=== PATIENT | female | born 1990 | race Hispanic/Latino ===

== ENCOUNTER 2020-05-11 05:45 | Day surgery (SDC) | payer OTHER ==
[~2020-05-11] VITALS: Ht 165.1 cm; Wt 109.0 kg
[~2020-05-11 05:45] MED LIST: ONDANSETRON ODT8 MG PO; RIZATRIPTAN5 MG PO; TRIAMCINOLONE A15 G1 TOP
--- NOTE | 2020-05-11 08:52 | NUR ---
05/11/20 0852 Renetta Field 0845- PT ARRIVES TO PACU NONAROUSABLE TO NOXIOUS STIMULI WITH AN OPA IN PLACE. RESP EVEN AND UNLABORED. OXYGEN SAT HIGH 90'S TO 100% ON 6L VIA MASK. PT'S BP 77/35, FLAVIA PATTERSON, ARTISTS' BOOKING REPRESENTATIVE AWARE. PT'S IV FLUIDS OPENED UP PER HER ORDER.
--- NOTE | 2020-05-11 09:45 | OR ---
[facility] [address] [place], [place] [address] Signed DATE OF OPERATION: 05/11/2020 SURGEON: Alex Crooks MD PREOPERATIVE DIAGNOSES: Chronic cholecystitis and cholelithiasis. POSTOPERATIVE DIAGNOSES: Chronic cholecystitis and cholelithiasis. PROCEDURE: Laparoscopic cholecystectomy with intraoperative cholangiogram. ESTIMATED BLOOD LOSS: None. FINDINGS: The intraoperative cholangiogram was unremarkable. There were chronic inflammatory changes with the omentum adherent to most of the gallbladder. There were multiple 8-10 mm stones within the gallbladder. INDICATIONS: Constance is a 30-year-old female with a body mass index of 40. She has been having trouble for at least a month with right upper quadrant abdominal pain. It is worse after eating. She had been to her primary care provider. The ultrasound confirmed her multiple gallstones. There was no gallbladder wall thickening and the common bile duct was unremarkable. She had been asked to see me as a general surgeon. Constance had been online reading and had cut the fat back in her diet. It helped to reduce her symptoms, but did not alleviate them completely. In the office, I gave her a booklet on the gallbladder. We discussed the location and function of the gallbladder. We discussed laparoscopic versus open cholecystectomy. We reviewed the expected intraop and postop course. She understands there is risk including, but not limited to bleeding, infection, scarring, change in contour of the skin, damage to bowel, damage to main bile duct, incisional hernias and other unforeseen comorbidities. She had expressed understanding and wished to proceed. DESCRIPTION OF PROCEDURE: Constance was taken into the operating room and placed in the supine position under general endotracheal tube anesthesia. She was given preoperative antibiotics along with subcutaneous heparin. SCDs were utilized. She was then prepped and draped in the usual Electronically Signed By: ALEX CROOKS MD 05/11/20 0945 PATIENT NAME: CONSTANCE GRULLON OPERATIVE REPORT DATE OF : [birth year] REPORT #: [id number] PHYSICIAN: ALEX CROOKS MD PCP: COMPA DILLARD PAC REPORT IS CONFIDENTIAL AND NOT TO BE RELEASED WITHOUT AUTHORIZATION [facility] [address] [place], [place] [address] Signed sterile fashion. All trocars were then placed in usual positions under direct visualization of the camera without difficulty. Pictures were taken throughout for photodocumentation. The gallbladder was grasped and elevated in the right upper quadrant. It took a few minutes to divide the adhesions from the gallbladder down to the triangle of Calot. The triangle of Calot was dissected free and 2 clips were placed across the cystic artery and it was divided. The intraoperative cholangiocatheter was inserted into the cystic duct. The intraoperative cholangiogram was then performed. The cystic duct stump was then secured with a PDS Endoloop and 2 clips were placed across the cystic duct stump to yudelka its location. The gallbladder was then slowly and carefully removed from the gallbladder fossa with the help of the cautery and placed into an EndoCatch bag. The right upper quadrant was irrigated and suctioned out until clear. We used our laparoscopic suturing device to pass 0 Vicryl suture on either side of the fascia of the subxiphoid trocar site. This was tied down to close this fascia primarily. After this, all the gas was allowed to escape and all the trocars were removed. The gallbladder was passed off to our circulating nurse on the back table. It was opened for photodocumentation. The fascia of the supraumbilical trocar site was closed with interrupted adrijh-[id number] and simple 0-Vicryl sutures. Local anesthetic was injected into all trocar sites. Each trocar site was irrigated and suctioned out until clear. The skin and dermis of each trocar site were then closed with interrupted 3-0 subcuticular Monocryl sutures. Dry gauze and tape were applied to all incisions. Constance was then awakened from her anesthesia, extubated in the OR, and taken to the recovery room in stable condition. Alex Crooks MD ALB/MODL /[id number] cc: LISA Fallon MD Copies: ALEX CROOKS MD Electronically Signed By: ALEX CROOKS MD 05/11/20 0945 PATIENT NAME: CONSTANCE GRULLON OPERATIVE REPORT DATE OF : [birth year] REPORT #: [id number] PHYSICIAN: ALEX CROOKS MD PCP: COMPA DILLARD PAC REPORT IS CONFIDENTIAL AND NOT TO BE RELEASED WITHOUT AUTHORIZATION [address] [address] Signed ~ Electronically Signed By: ALEX CROOKS MD 05/11/20 0945 PATIENT NAME: CONSTANCE GRULLON OPERATIVE REPORT DATE OF : [birth year] REPORT #: [id number] PHYSICIAN: ALEX CROOKS MD PCP: COMPA DILLARD PAC REPORT IS CONFIDENTIAL AND NOT TO BE RELEASED WITHOUT AUTHORIZATION
--- NOTE | 2020-05-11 09:47 | NUR ---
PT ARRIVES TO PACU WITH EYES CLOSED, RESP EVEN AND UNLABORED. PT AROUSES TO VERBAL STIMULI AND IS ABLE TO DENY NAUSEA AND STATES PAIN IS 4-5/10. PT STATES PAIN IS IN RIGHT FLANK THAT RADIATES TO BACK. PT MEDICATED FOR PAIN, SEE EMAR. CONT PULSE OXIMETER LEFT IN PLACE. PT FRIEND AT BEDSIDE. CALL LIGHT WITHIN REACH. ICED WATER, CRACKERS AND PUDDING AT BEDSIDE.
--- NOTE | 2020-05-11 10:00 | NUR ---
PT USES CALL LIGHT TO NOTIFY RN OF NAUSEA. ALCOHOL SWAB WAIVED UNDER PT NOSE TO HELP AND PROVIDED EMESIS BAG. PT MEDICATED PER EMAR. FRIEND REMAINS AT BEDSIDE.
[2020-05-11] MEDS ORDERED: NORCO 10-325 T1 EACH PO (10:18)
[2020-05-11] MEDS ORDERED: JULEBER 28 DAY1 EACH PO (10:20)
--- NOTE | 2020-05-11 10:40 | NUR ---
PT RESTING IN BED WITH EYES CLOSED, CONT PULSE OXIMETER IN PLACE SATS 94% ON RA. PT DOES NOT OPEN EYES WHEN ASKED QUESTIONS. PT MUMBLES WHEN ASKED ABOUT PAIN AND/OR NAUSEA. PT STATES, "I AM HOT" AND REQUESTS SCD'S BE REMOVED. BLANKETS REMOVED AND SPENCER HUGGER PLACED ON COOL. PT FRINED REMAINS AT BEDSIDE AND CALL LIGHT IS WITHIN REACH.
--- NOTE | 2020-05-11 11:35 | NUR ---
PT RESTING WITH EYES CLOSED, AROUSES TO VERBAL STIMULI AND MOMENTARILY OPENS EYES. PT STATES NAUSEA IS BETTER AND ASKS TO HAVE SPENCER HUGGER TURNED OFF. PT DENIES PAIN WHEN ASKED. DC CRITERIA EXPLAINED TO PT, ENC TO USE CALL LIGHT WITH URGE TO VOID.
--- NOTE | 2020-05-11 12:36 | NUR ---
PT USES CALL LIGHT TO NOTIFY RN OF URGE TO VOID. PT UP TO BATHROOM WITH RN ASSIST, STEADY GAIT. PT DENIES NAUSEA OR DIZZINESS WITH AMBULATION. ABLE TO VOID 550 MLS CONCENTRATED YELLOW URINE WITH NO PROBLEMS. BACK TO BED, PT STATES FEELING NAUSEATED. PT PROVIDED EMESIS BAG AND ALCOHOL SWAB, PT STATES THAT IT IS HELPING. PT ENC TO TRY SMALL SIPS OF WATER AND CRACKERS. FRIEND AT BEDSIDE, CALL LIGHT WITHIN REACH.
--- NOTE | 2020-05-11 12:48 | NUR ---
PT STATES NAUSEA IS BETTER, TOLERATES WATER AND APPLESAUCE.
--- NOTE | 2020-05-11 13:45 | NUR ---
PT FEELS READY TO DC, DRESSES SELF AND OPENS CURTAIN WHEN FINISHED. THIS RN ENTERS ROOM TO GIVE DC INSTRUCTIONS, IV REMOVED AND PT STATES FEELING "SUPER NAUSEATED." PT ENC TO SIT ON BED AND PROVIDED ALCOHOL SWAB AND EMESIS BAG. PT HAS APPROX 100 MLS GREEN EMESIS, PROVIDED WET WASH CLOTH. PT STATES FEELING BETTER AFTER BOUT OF EMESIS. THIS RN CONTACTS DR. CROOKS FOR NAUSEA MEDICATION FOR PT TO DC HOME WITH TO TAKE WITH NARCOTIC PAIN MEDICATION. VERBAL ORDERS RECEIVED AND CALLED INTO PT PREFFERED PHARMACY. PT ENC TO REST IN BED FOR A LITTLE LONGER PRIOR TO DISCHARGING, PT AGREEABLE.
--- NOTE | 2020-05-11 14:15 | NUR ---
PT DENIES NAUSEA AND WOULD LIKE TO DC HOME. DC INSTRUCTIONS GIVEN IN PRESENCE OF PT AND FRIEND, ALL QUESTIONS ADDRESSED. PAIN PRESCRIPTION PROVIDED IN DC PACKET. PT REMINDED OF NAUSEA MEDICATION CALLED INTO PHARMACY. PT DC FROM DS RM 12 VIA WC TO PERSONAL VE[facility]IC[facility].
--- NOTE | 2020-05-14 11:14 | PATH ---
[facility] [address] [facility] [place], [place] [address] Signed SPECIMEN(S): A GALLBLADDER AND CONTENTS SPECIMEN SOURCE: A. GALLBLADDER AND CONTENTS CLINICAL HISTORY: Calculus cholecystitis. FINAL PATHOLOGIC DIAGNOSIS: Gallbladder, cholecystectomy: - Chronic cholecystitis with cholesterolosis. - Cholelithiasis. NAL:cml:C2NR MICROSCOPIC EXAMINATION: Histologic sections of all submitted blocks are examined by light microscopy. These findings, together with the gross examination, support the pathologic diagnosis. GROSS DESCRIPTION: The specimen, labeled "KR," and designated on the requisition "gallbladder with stones," is received in formalin and consists of Specimen: Previously opened gallbladder. Dimensions: 5.7 x 3.1 x 2.1 cm. Serosa: [place] and smooth. Cystic Duct: Obstructed with calculi. Calculi: Purple-yellow, bosselated calculi (2.9 x 2.7 x 1.0 cm in aggregate). Mucosa: [place] and velvety with yellow stippling. Wall thickness: 0.4 cm. Lymph node: No pericystic lymph nodes are grossly identified. Additional: None. Sample Book Maker sections are submitted in cassette (A1). AC (under the direct supervision of a pathologist) The Gross Description was prepared using a voice recognition system. The report was reviewed for accuracy; however, sound-alike word errors, addition and/or deletions may occur. If there is any question about this report, please contact Client Services. PERFORMING LABORATORY: The technical component was performed by [facility], [address] [place] [id number] (Social Media Executive: Cheri Gonsales MD; CLIA# [id number]). PATIENT NAME: ARRON GRULLON PATHOLOGY DATE OF : [birth year] REPORT #: [id number] PHYSICIAN: IRMA PATHOLOGY PCP: COMPA DILLARD PAC REPORT IS CONFIDENTIAL AND NOT TO BE RELEASED WITHOUT AUTHORIZATION [facility] [address] [place], [place] [address] Signed [facility] [address] [place] [address] (CLIA# [id number]). Diagnostician: Isabella Mariee MD Pathologist Electronically Signed 05/14/2020 Copies: ~ PATIENT NAME: ARRON GRULLON PATHOLOGY DATE OF : [birth year] REPORT #: [id number] PHYSICIAN: IRMA RAMIREZ PCP: COMPA DILLARD PAC REPORT IS CONFIDENTIAL AND NOT TO BE RELEASED WITHOUT AUTHORIZATION
== END 2020-05-11 14:15 | disposition home or self-care (01) ==
LOC: DS 05:45
PROVIDERS: ATTEND Colon & Rectal Surgery
PROC: BF13YZZ Fluoroscopy of Gallbladder and Bile Ducts using Other Contrast (ICD-10-PCS; 2020-05-11)
PROC: 0FT44ZZ Resection of Gallbladder, Percutaneous Endoscopic Approach (ICD-10-PCS; principal; 2020-05-11 06:45)
DX: K80.10 Calculus of gallbladder with chronic cholecystitis without obstruction (principal); G43.109 Migraine with aura, not intractable, without status migrainosus; E66.9 Obesity, unspecified; Z79.899 Other long term (current) drug therapy; Z68.39 Body mass index [BMI] 39.0-39.9, adult
CPT/HCPCS: 74300; J0330; J0690; J1100; J1170; J1644; J1885; J2001; J2250; J2405; J2550; J2704; J3010; J3475; J7121; Q9967

== ENCOUNTER 2023-03-19 00:06 | Inpatient (IN) | payer OTHER ==
[~2023-03-19] VITALS: Ht 165.1 cm; Wt 131.5 kg
--- NOTE | ~2023-03-19 | OR ---
[facility] [place] [facility] [address], [place] [address] Draft DATE OF OPERATION: 03/21/2023 SURGEON: Thaddeus Ding DO PROCEDURE: Primary low-transverse . ATOMIC PHYSICS PROFESSOR: Luz Maria Flores MD PREOPERATIVE DIAGNOSES: Failed induction of labor, gestational diabetes, diet controlled, maternal obesity, 40 weeks gestation. POSTOPERATIVE DIAGNOSIS: Term , delivered, failed induction of labor, occiput posterior positioning, gestational diabetes, diet controlled, obesity, hemorrhage. ANESTHESIA: Spinal. COMPLICATIONS: hemorrhage. ESTIMATED BLOOD LOSS: 850 mL. FINDINGS: Viable term female in the right occiput posterior position, weighing 9 pounds 1 ounces with Apgars of nine and nine. Normal-appearing bilateral tubes and ovaries. INDICATIONS: The patient is a 33-year-old, G1, P0, who presented for induction of labor on 03/19. She received Cytotec x8 doses. Then, an additional three doses were administered after break with no further cervical change beyond 1 cm dilation, but catheter was attempted, but the patient did not tolerate at this point. delivery was discussed, particularly due to gestational diabetes with ultrasound showing abdominal circumference in the 98th percentile. Prior to induction, primary had been offered, and at this point, patient elected to proceed. The Cook catheter was removed. She was made n.p.o. with decision to proceed with in the morning. PATIENT NAME: ARRON CORNELIUS OPERATIVE REPORT DATE OF : [birth year] REPORT #: [id number] PHYSICIAN: THADDEUS DING DO PCP: COMPA DILLARD PAC REPORT IS CONFIDENTIAL AND NOT TO BE RELEASED WITHOUT AUTHORIZATION [facility] [place] [facility] [address], [place] [address] Draft DESCRIPTION OF PROCEDURE: The patient was given 3 g Ancef and was taken back to the OR where spinal was placed by Anesthesia. She was then positioned in supine position with a leftward tilt and prepped and draped in normal sterile fashion. Once adequate anesthesia was confirmed, low-transverse incision was made with a scalpel approximately 4 cm cephalad to normal Pfannenstiel incision location to improve healing with body habitus. Incision was then carried down to the underlying layer of fascia with Bovie cautery, cauterizing vessels as they were encountered. The fascia was nicked in midline and extended laterally with Zarate scissors. Inferior margin of fascia was grasped with Pao clamps, elevated, underlying rectus muscle was dissected off bluntly and sharply with Zarate scissors. Inferior margin of fascia was then released. Superior margin was grasped with Pao's, elevated in a similar fashion. Underlying rectus muscle was dissected off bluntly and sharply with Zarate scissors. Peritoneum was entered bluntly and extended with lateral traction. The head was palpable, not engaged in the pelvis. Remington retractor was placed without difficulty and hysterotomy was made with a scalpel at the vesicouterine junction. Hysterotomy was entered bluntly, digitally with amniotomy yielding clear fluid. 's head was easily grasped and elevated. The incision noted to be in the right occiput posterior position and again not well engaged in the pelvis. Head delivered easily followed by anterior and then posterior shoulder and remainder of body without any difficulty. The cord was doubly clamped and cut and baby gave a strong spontaneous cry. She was handed to waiting nursery team. Cord blood was collected for type and Raul. Placenta was manually expressed and uterus was cleared of clots and debris. Hysterotomy was closed in a double-layer closure with 0 Monocryl first in a running locked fashion, second in an imbricating manner with excellent hemostasis resulting. Pelvis was suction irrigated with sterile saline again confirming excellent hemostasis. Tubes and ovaries were inspected with normal findings as noted above. Remington retractor was removed. Peritoneum was closed with 2-0 Vicryl in a running fashion. Rectus muscle was then reapproximated at midline with a small perforating vessel just left of midline around which a [id number] suture with 2-0 Vicryl was placed with hemostasis resulting. Rectus muscles reapproximated midline with 0 Vicryl x3 simple interrupted sutures. Rectus was inspected. Perforating vessels were cauterized with Bovie cautery and then rectus was suction irrigated with warm sterile saline with hemostasis noted. Fascia was then closed with 0 Vicryl working first from right apex to the midline, then left apex to midline meeting in the middle. Subcutaneous layer was closed in two separate layers, first at Chey's fascia with 2-0 Vicryl in a running fashion and second more superficial with 3-0 Vicryl in a running fashion. Perforating vessels were cauterized with Bovie cautery as they were encountered with excellent hemostasis noted in this layer. The skin was closed with alexandria. Uterus was Crede'd and noted to be quite full of clots, which were manually evacuated with some difficulty due to cervical dilation only being 1 cm. The patient tolerated very well, and at this point, 1 g tranexamic acid was administered IV and PATIENT NAME: ARRON CORNELIUS OPERATIVE REPORT DATE OF : [birth year] REPORT #: [id number] PHYSICIAN: THADDEUS DING DO PCP: COMPA DILLARD PAC REPORT IS CONFIDENTIAL AND NOT TO BE RELEASED WITHOUT AUTHORIZATION [facility] [place] [facility] [address], [place] [address] Draft Cytotec suppository was placed rectally. She remained in the OR for placement of tap blocks before returning to the recovery room where she did then have another large gush of fluid, bringing her total blood loss from a 50-1466 mL, which point Methergine was then administered and additional 30 units of Pitocin were hung. Coagulation panel was collected. Throughout, her vital signs remained stable without tachycardia or hypotension, and she will continue to be monitored closely. All sponge and instrument counts were correct prior to leaving the OR. DO MONAE Stiles/MODL /[id number] Copies: ~ PATIENT NAME: ARRON CORNELIUS OPERATIVE REPORT DATE OF : [birth year] REPORT #: [id number] PHYSICIAN: THADDEUS DING DO PCP: COMPA DILLARD PAC REPORT IS CONFIDENTIAL AND NOT TO BE RELEASED WITHOUT AUTHORIZATION
--- OUTSIDE RECORDS SUMMARY | ~2023-03-19 | XMS | Continuity of Care Document ---
Demographics + + + | Address | [address] | | | [place] [address] | + + + | Preferred Language | Unknown | + + + | Marital Status | | + + + | [employer] Affiliation | Unknown | + + + | Race | Unknown | + + + | Ethnic Group | Unknown | + + + Author + + + | Author | [facility] | + + + | Organization | [facility] | + + + | Address | [address] | | | [place] [address] | + + + | Phone | | + + + Care Team Providers + + + + | Care Inspector Watch Train Name | Role | Phone | + + + + Unavailable | Unavailable | + + + + Allergies and Intolerances + + + + + + | date | description | facility | reaction | severity | + + + + + + | (no date) | No Known | [facility] | (no reaction) | (no severity) | | | Allergies | | | | + + + + + + Encounters No information. Functional Status No information. Immunizations No information. Medications No information. Problems + + + + | date | description | facility | + + + + | 2022-08-12 13:09 | ENCNTR FOR SUPRVSN OF | [facility] | | | NORMAL FIRST PREG, FIRST | | | | TRIMESTER | | + + + + | 2022-08-12 13:09 | LESS THAN 8 WEEKS | [facility] | | | GESTATION OF | | + + + + | 2022-11-04 16:49 | ENCNTR FOR SUPRPINEDAN OF | [facility] | | | NORMAL FIRST PREG, SECOND | | | | TRIMESTER | | + + + + | 2022-11-04 16:49 | 20 WEEKS GESTATION OF | [facility] | | | | | + + + + | 2022-12-30 13:32 | GESTATIONAL DIABETES | [facility] | | | MELLITUS IN , UNSP | | | | CONTROL | | + + + + | 2022-12-30 13:32 | DIETARY COUNSELING AND | [facility] | | | SURVEILLANCE | | + + + + | 2023-01-19 16:00 | HYPOTHYROIDISM, | [facility] | | | UNSPECIFIED | | + + + + | 2023-01-19 16:00 | OBESITY COMPLICATING | [facility] | | | , SECOND T | | + + + + | 2023-01-19 16:01 | HYPOTHYROIDISM, | [facility] | | | UNSPECIFIED | | + + + + | 2023-01-19 16:01 | OBESITY COMPLICATING | [facility] | | | , SECOND T | | + + + + | 2023-01-19 16:01 | OBESITY COMPLICATING | [facility] | | | , SECOND TRIMESTER | | | | | | + + + + | 2023-01-19 16:01 | ENDO, NUTRITIONAL AND | [facility] | | | METAB DISEASES COMP PREG, | | | | TH | | + + + + | 2023-01-19 16:01 | 32 WEEKS GESTATION OF | [facility] | | | | | + + + + | 2023-01-27 13:59 | GESTATIONAL DIABETES | [facility] | | | MELLITUS IN , UNSP | | | | CONTROL | | + + + + | 2023-01-27 13:59 | 32 WEEKS GESTATION OF | [facility] | | | | | + + + + | 2023 15:31 | GESTATIONAL DIABETES | [facility] | | | MELLITUS IN , UNSP | | | | CONTROL | | + + + + | 2023 15:31 | 33 WEEKS GESTATION OF | [facility] | | | | | + + + + | 2023-02-10 14:28 | GESTATIONAL DIABETES | [facility] | | | MELLITUS IN , UNSP | | | | CONTROL | | + + + + | 2023-02-10 14:28 | 34 WEEKS GESTATION OF | [facility] | | | | | + + + + | 2023-02-16 15:51 | HYPOTHYROIDISM, | [facility] | | | UNSPECIFIED | | + + + + | 2023-02-16 15:51 | OBESITY COMPLICATING | [facility] | | | , SECOND T | | + + + + | 2023-02-16 15:51 | OBESITY COMPLICATING | [facility] | | | , SECOND TRIMESTER | | | | | | + + + + | 2023-02-16 15:51 | ENDO, NUTRITIONAL AND | [facility] | | | METAB DISEASES COMP PREG, | | | | TH | | + + + + | 2023-02-16 15:51 | 33 WEEKS GESTATION OF | [facility] | | | | | + + + + | 2023-02-16 16:00 | HYPOTHYROIDISM, | [facility] | | | UNSPECIFIED | | + + + + | 2023-02-16 16:00 | OBESITY COMPLICATING | [facility] | | | , SECOND T | | + + + + | 2023-02-17 14:27 | GESTATIONAL DIABETES | [facility] | | | MELLITUS IN , UNSP | | | | CONTROL | | + + + + | 2023-02-17 14:27 | 35 WEEKS GESTATION OF | [facility] | | | | | + + + + | 2023-02-24 14:26 | GESTATIONAL DIABETES | [facility] | | | MELLITUS IN , UNSP | | | | CONTROL | | + + + + | 2023-02-24 14:26 | 36 WEEKS GESTATION OF | [facility] | | | | | + + + + | 2023-02-27 14:30 | GESTATIONAL DIABETES | [facility] | | | MELLITUS IN , UNSP | | | | CONTROL | | + + + + | 2023-02-27 14:30 | 36 WEEKS GESTATION OF | [facility] | | | | | + + + + | 2023-03-03 10:57 | SUPERVISION OF HIGH RISK | [facility] | | | , UNSP | | + + + + | 2023-03-03 10:57 | SUPERVISION OF HIGH RISK | [facility] | | | , UNSP, THIRD | | | | TRIMESTER | | + + + + | 2023-03-03 10:57 | GESTATIONAL DIABETES | [facility] | | | MELLITUS IN PREGNAN | | + + + + | 2023-03-03 10:57 | OBESITY COMPLICATING | [facility] | | | , THIRD TR | | + + + + | 2023-03-03 11:00 | SUPERVISION OF HIGH RISK | [facility] | | | , UNSP | | + + + + | 2023-03-03 11:00 | GESTATIONAL DIABETES | [facility] | | | MELLITUS IN PREGNAN | | + + + + | 2023-03-03 11:00 | OBESITY COMPLICATING | [facility] | | | , THIRD TR | | + + + + | 2023-03-06 14:30 | ENCNTR FOR SUPRVSN OF | [facility] | | | NORMAL PREG, UNSP, THIRD | | | | TRIMESTER | | + + + + | 2023-03-06 14:30 | 37 WEEKS GESTATION OF | [facility] | | | | | + + + + | 2023-03-10 13:57 | SUPERVISION OF HIGH RISK | [facility] | | | , UNSP | | + + + + | 2023-03-10 13:57 | GESTATIONAL DIABETES | [facility] | | | MELLITUS IN PREGNAN | | + + + + | 2023-03-10 13:57 | GESTATIONAL DIABETES | [facility] | | | MELLITUS IN , DIET | | | | CONTROLLED | | + + + + | 2023-03-10 13:57 | MATERNAL CARE FOR EXCESS | [facility] | | | GROWTH, T | | + + + + | 2023-03-10 13:57 | OBESITY COMPLICATING | [facility] | | | , THIRD TR | | + + + + | 2023-03-10 14:00 | SUPERVISION OF HIGH RISK | [facility] | | | , UNSP | | + + + + | 2023-03-10 14:00 | GESTATIONAL DIABETES | [facility] | | | MELLITUS IN PREGNAN | | + + + + | 2023-03-10 14:00 | MATERNAL CARE FOR EXCESS | [facility] | | | GROWTH, T | | + + + + | 2023-03-10 14:00 | OBESITY COMPLICATING | [facility] | | | , THIRD TR | | + + + + | 2023-03-13 15:28 | GESTATIONAL DIABETES | [facility] | | | MELLITUS IN , UNSP | | | | CONTROL | | + + + + | 2023-03-13 15:28 | 38 WEEKS GESTATION OF | [facility] | | | | | + + + + | 2023-03-17 13:44 | SUPERVISION OF HIGH RISK | [facility] | | | , UNSP | | + + + + | 2023-03-17 14:00 | SUPERVISION OF HIGH RISK | [facility] | | | , UNSP | | + + + + Procedures No information. Results/Labs No information. Social History No information. Vital Signs No information."
[~2023-03-19 00:06] MED LIST changes: +JULEBER 28 DAY1 EACH PO; +NORCO 10-325 T1 EACH PO
[2023-03-19 00:54] LABS: HEMATOCRIT 33.3 % (35.0-50.0); HEMOGLOBIN 11.4 g/dL (12.0-18.0); MCH 29.3 (27-36); MCHC 34.3 g/dl (30-36); MCV 85.5 fl (81-99); RBC 3.9 M/ul (4.3-5.7); RDW 14.6 (10.5-15.0)
[2023-03-19 01:01] LABS: AMPHETAMINES, UR NEGATIVE (NEGATIVE); BARBITURATES, UR NEGATIVE (NEGATIVE); BENZODIAZEPINES, UR NEGATIVE (NEGATIVE); BUPRENORPHINE,UR NEGATIVE (NEGATIVE); COCAINE, UR NEGATIVE (NEGATIVE); MARIJUANA (THC), UR NEGATIVE (NEGATIVE); MDMA, UR NEGATIVE (NEGATIVE); METHADONE, UR NEGATIVE (NEGATIVE); METHAMPHETAMINE, UR NEGATIVE (NEGATIVE); OPIATES, UR NEGATIVE (NEGATIVE); OXYCODONE, UR NEGATIVE (NEGATIVE); PHENCYCLIDINE, UR NEGATIVE (NEGATIVE); TRICYCLIC ANTIDEPRESSANT, UR NEGATIVE (NEGATIVE)
[2023-03-19 01:03] VITALS: BP 114/68
[2023-03-19 01:30] LABS: ABO O; ANTIBODY SCREEN NEGATIVE; RH POSITIVE
--- NOTE | 2023-03-19 12:50 | PR ---
[facility] [address] [facility] [place], [place] [address] Signed Progress Notes IP Datetime Report Generated by CPN: 03/19/2023 12:50 PROGRESS NOTES: [id number] Impression: Reassuring Heart Rate Plan: Continue Present Management VITAL SIGNS: [id number] Vital Signs: Reviewed EXAM: [id number] Dilatation: 0.0 Effacement: 50 Station: -3 Contractions: rare MEMBRANES: [id number] Membranes Status: Intact Comments: Reviewed reassuring FHR, no cervical change yet. Discussed options are limited at this stage, plan to continue cytotec. Pt/ deny questions/ concerns at this time FETUS A: [id number] FHR Baseline: 135 Variability: Moderate 6-25bpm Accelerations: 15X15 Presentation: Vertex Comments on Fetus A: single isolated late while on back for cervical check/ cytotec placement FETUS B: [id number] Signing Physician: Thaddeus Ding DO Copies: ~ *Electronically Signed* 03/19/23 1250 THADDEUS DING DO PATIENT NAME: ARRON CORNELIUS PROGRESS NOTE DATE OF : 90 PHYSICIAN: THADDEUS DING DO [facility] #: [id number] REPORT IS CONFIDENTIAL AND NOT TO BE RELEASED WITHOUT AUTHORIZATION
--- NOTE | 2023-03-19 17:41 | PR ---
[facility] [address] [facility] [place], [place] [address] Signed Progress Notes IP Datetime Report Generated by CPN: 03/19/2023 17:41 PROGRESS NOTES: [id number] Impression: Reassuring Heart Rate Procedures: Sterile Vag Exam Plan: Continue Present Management VITAL SIGNS: [id number] Vital Signs: Reviewed EXAM: [id number] Dilatation: 1.0 Effacement: 0 Station: -3 Contractions: rare MEMBRANES: [id number] Membranes Status: Intact Comments: Discussed induction options moving forward: recommend placing 6th cytotec. After that, could consider FETUS A: [id number] FHR Baseline: 135 Variability: Moderate 6-25bpm Accelerations: 15X15 Presentation: Vertex Comments on Fetus A: single isolated late while on back for cervical check/ cytotec placement FETUS B: [id number] Signing Physician: Thaddeus Ding DO Copies: ~ *Electronically Signed* 03/19/23 1741 THADDEUS DING DO PATIENT NAME: ARRON CORNELIUS PROGRESS NOTE DATE OF : 90 PHYSICIAN: THADDEUS DING DO RPT #: [id number] REPORT IS CONFIDENTIAL AND NOT TO BE RELEASED WITHOUT AUTHORIZATION
--- NOTE | 2023-03-19 23:44 | PR ---
[facility] [address] [facility] [place], [place] [address] Signed Progress Notes IP Datetime Report Generated by CPN: 03/19/2023 23:44 PROGRESS NOTES: [id number] Impression: Reassuring Heart Rate Procedures: Sterile Vag Exam Plan: Continue Present Management VITAL SIGNS: [id number] Vital Signs: Reviewed EXAM: [id number] Dilatation: 1.0 Effacement: 0 Station: -3 Contractions: rare MEMBRANES: [id number] Membranes Status: Intact Comments: No significant cervical change. Cytotec #8 placed by RN as previously discussed, plan to defer further cervical checks until morning and allow pt to sleep as previously discussed. FETUS A: [id number] FHR Baseline: 135 Variability: Moderate 6-25bpm Accelerations: 15X15 Presentation: Vertex Comments on Fetus A: single isolated late while on back for cervical check/ cytotec placement FETUS B: [id number] Signing Physician: Thaddeus Ding DO Copies: ~ *Electronically Signed* 03/19/23 4264 THADDEUS DING DO PATIENT NAME: ARRON CORNELIUS PROGRESS NOTE DATE OF : 90 PHYSICIAN: THADDEUS DING DO [facility] #: [id number] REPORT IS CONFIDENTIAL AND NOT TO BE RELEASED WITHOUT AUTHORIZATION
--- NOTE | 2023-03-20 05:13 | PR ---
[facility] [address] [facility] [place], [place] [address] Signed Progress Notes IP Datetime Report Generated by CPN: 03/20/2023 05:13 PROGRESS NOTES: [id number] Impression: Reassuring Heart Rate Procedures: Sterile Vag Exam Plan: Continue Present Management VITAL SIGNS: [id number] Vital Signs: Reviewed EXAM: [id number] Dilatation: 1.0 Effacement: 20 Station: -3 Contractions: rare MEMBRANES: [id number] Membranes Status: Intact Comments: Strip review: category 1 tracing, pt sleeping soundly. Will recheck and review options for moving forward once she is awake FETUS A: [id number] FHR Baseline: 135 Variability: Moderate 6-25bpm Accelerations: 15X15 Presentation: Vertex Comments on Fetus A: single isolated late while on back for cervical check/ cytotec placement FETUS B: [id number] Signing Physician: Thaddeus Ding DO Copies: ~ *Electronically Signed* 03/20/23512 THADDEUS DING DO PATIENT NAME: CORNELIUSARRON PROGRESS NOTE DATE OF : 90 PHYSICIAN: THADDEUS DING DO RPT #: [id number] REPORT IS CONFIDENTIAL AND NOT TO BE RELEASED WITHOUT AUTHORIZATION
--- NOTE | 2023-03-20 09:25 | PR ---
[facility] [address] [place] [place] [address] Signed Progress Notes IP Datetime Report Generated by CPN: 03/20/2023 09:25 PROGRESS NOTES: [id number] Impression: Reassuring Heart Rate Procedures: Sterile Vag Exam Plan: Cervical Ripening VITAL SIGNS: [id number] Vital Signs: Reviewed EXAM: [id number] Dilatation: 1.0 Effacement: 30 Station: -3 Contractions: rare MEMBRANES: [id number] Membranes Status: Intact Comments: Reviewed options for continuing induction. While could consider AROM or pitocin, I do not recommend either of these with unfavorable cervix. Cook catheter would likely offer significant benefit at this stage, or we could resume cervical ripening with cytotec. Pt and her would like to resume cytotec. FETUS A: [id number] FHR Baseline: 135 Variability: Moderate 6-25bpm Accelerations: 15X15 Presentation: Vertex Comments on Fetus A: single isolated late while on back for cervical check/ cytotec placement FETUS B: [id number] Signing Physician: Thaddeus Ding DO Copies: ~ *Electronically Signed* 03/20/23924 THADDEUS DING DO PATIENT NAME: ARRON CORNELIUS PROGRESS NOTE DATE OF : [birth year] PHYSICIAN: THADDEUS DING DO RPT #: [id number] REPORT IS CONFIDENTIAL AND NOT TO BE RELEASED WITHOUT AUTHORIZATION
--- NOTE | 2023-03-20 19:12 | PR ---
[facility] [address] [place], [place] [address] Signed Progress Notes IP Datetime Report Generated by CPN: 03/20/2023 19:12 PROGRESS NOTES: [id number] Impression: Reassuring Heart Rate Procedures: Sterile Vag Exam Plan: Cervical Ripening Other Plans: Cook catheter placement VITAL SIGNS: [id number] Vital Signs: Reviewed EXAM: [id number] Dilatation: 1.0 Effacement: 30 Station: -3 Contractions: rare MEMBRANES: [id number] Membranes Status: Intact Comments: No further cervical change with cytotec x 3. Discussed cook catheter overnight; at this point pt is willing to try. If pt is unable to tolerate cook, plan to remove, make NPO, and plan for in the morning for failed induction. Cook placed with significant patient discomfort, able to tolerate only 20mL sterile saline each balloon, vaginal and uterine. Plan to add additional 20mL sterile saline to each balloon every 20 minutes until 80mL in each balloon. FETUS A: [id number] FHR Baseline: 135 Variability: Moderate 6-25bpm Accelerations: 15X15 Presentation: Vertex Comments on Fetus A: single isolated late while on back for cervical check/ cytotec placement FETUS B: [id number] Signing Physician: Thaddeus Ding DO Copies: ~ *Electronically Signed* 03/20/231911 THADDEUS DING DO PATIENT NAME: ARRON CORNELIUS PROGRESS NOTE DATE OF : [birth year] PHYSICIAN: THADDEUS DING DO RPT #: [id number] REPORT IS CONFIDENTIAL AND NOT TO BE RELEASED WITHOUT AUTHORIZATION
--- NOTE | 2023-03-20 21:23 | PR ---
[facility] [address] [place], [place] [address] Signed Progress Notes IP Datetime Report Generated by MIMA: 03/20/2023 21:22 PROGRESS NOTES: [id number] Impression: Reassuring Heart Rate Procedures: Sterile Vag Exam Plan: Cervical Ripening Other Plans: see note VITAL SIGNS: [id number] Vital Signs: Reviewed EXAM: [id number] Dilatation: 1.0 Effacement: 30 Station: -3 Contractions: rare MEMBRANES: [id number] Membranes Status: Intact Comments: 33 yo @ 39 6/7 weeks gestation -MIOL for GDMA1, s/p cytotec x 8 then break then cytotec x 3. Progressed to 08/18/-3 with no change in 24h. Cook catheter attempted, pt unable to tolerate more than 40mL sterile saline in each balloon. -Discussed options at this point: risks, benefits, alternatives reviewed particularly in context of AC > 98% and GDM. Pt desires primary delivery -Reviewed desired family size (2-3 children), and TOLAC referral possibility for future . -PLTCS scheduled for 0800 tomorrow morning, pt not yet NPO. Recommended eating dinner then NPO after midnight, as discussed with anesthesia. -2g Ancef for FETUS A: [id number] FHR Baseline: 135 Variability: Moderate 6-25bpm Accelerations: 15X15 Presentation: Vertex Comments on Fetus A: single isolated late while on back for cervical check/ cytotec placement FETUS B: [id number] Signing Physician: Thaddeus Ding DO *Electronically Signed* 03/20/232121 THADDEUS DING DO PATIENT NAME: FATIMAH CORNELIUSA SUMMER PROGRESS NOTE DATE OF : [birth year] PHYSICIAN: THADDEUS DING DO RPT #: [id number] REPORT IS CONFIDENTIAL AND NOT TO BE RELEASED WITHOUT AUTHORIZATION
--- NOTE | 2023-03-21 07:47 | PR ---
[facility] [address] [place], [place] [address] Signed Progress Notes IP Datetime Report Generated by CPN: 03/21/2023 07:47 PROGRESS NOTES: [id number] Impression: Reassuring Heart Rate Procedures: Sterile Vag Exam Plan: Deliver- Section Other Plans: see note Informed Consent Obtain: Section Delivery; Risks, Benefits and Alternatives Discussed VITAL SIGNS: [id number] Vital Signs: Reviewed EXAM: [id number] Dilatation: 1.0 Effacement: 30 Station: -3 Contractions: rare MEMBRANES: [id number] Membranes Status: Intact Comments: 33 yo @ 40 weeks gestation -Reports feeling good about decision to proceed with primary delivery for failed induction of labor -Denies questions concerns Reviewed procedure with pt and . They deny questions/ concerns at this time. FETUS A: [id number] FHR Baseline: 135 Variability: Moderate 6-25bpm Accelerations: 15X15 Presentation: Vertex Comments on Fetus A: single isolated late while on back for cervical check/ cytotec placement FETUS B: [id number] Signing Physician: Thaddeus Ding DO Copies: ~ *Electronically Signed* 03/21/23746 THADDEUS DING DO PATIENT NAME: ARRON CORNELIUS PROGRESS NOTE DATE OF : 90 PHYSICIAN: THADDEUS DING DO RPT #: [id number] REPORT IS CONFIDENTIAL AND NOT TO BE RELEASED WITHOUT AUTHORIZATION
--- NOTE | 2023-03-21 10:11 | NUR ---
03/21/23 1011 Joy Perez LE 0948: PT ARRIVES TO ROOM 105 FOR PACU RECOVERY. INITAL FUNDAL CHECK SHOWS THE UTERUS IS ABOVE THE UMBILICUS, TO THE RIGHT, THERE IS A LARGE AMOUNT OF BLEEDING, WITH LARGE CLOTS. DR. Nichols IS CALLED INTO THE ROOM. SHE DOES AN ENTERNAL UTERUS CHECK, PULLING MORE CLOTS, WHILE ALSO MASSAING THE FUNDUS. LE 0955: HEMORRHAGE PROTOCOLS ARE STARTED. SHE IS GIVEN METHERGEN, AN ADDITIONAL 30 OF PIT, CONTINOUS FUNDAL MASSAGE. LE 1000: PT IS ROLLED TO PULL OUT SATURATED CHUCKS TO BE WEIGHED FOR WEIGHT LOSS. CLEAN CHUCKS PLACED UNDERNEATH TO CATCH ADDITIONAL BLOOD LOSS.
[2023-03-21 10:18] VITALS: BP 125/61
[2023-03-21 10:21] LABS: HEMOGLOBIN 10.5 g/dL (12.0-18.0); MCH 29.3 (27-36); MCHC 33.8 g/dl (30-36); MCV 86.8 fl (81-99); RBC 3.57 M/ul (4.3-5.7); RDW 14.6 (10.5-15.0)
[2023-03-21 10:33] LABS: PARTIAL THROMBOPLASTIN TIME 29.5 Sec (22.9-41.3)
[2023-03-21 10:35] LABS: INR 1.03 (0.80-1.30)
[2023-03-22 05:24] LABS: HEMATOCRIT 26.5 % (35.0-50.0); HEMOGLOBIN 9.1 g/dL (12.0-18.0); MCH 29.7 (27-36); MCHC 34.4 g/dl (30-36); MCV 86.3 fl (81-99); RBC 3.07 M/ul (4.3-5.7); RDW 14.6 (10.5-15.0)
--- NOTE | 2023-03-22 12:19 | PR ---
[facility] [address] [place], [place] [address] Signed PP Progress Notes Datetime Report Generated by CPN: 03/22/2023 12:19 SUBJECTIVE: [id number] Pain: Within Normal Limits Nausea/Vomiting: Denies Flatus: Yes Vital Signs: [id number] Vital Signs: Reviewed; Within Normal Limits EXAM: Ongoing Cardiovascular: Normal Respiratory: Normal Abdomen/Uterus: Normal Breasts: Normal Extremities: Normal Incision: Normal Progress: Normal Exam Comments: NAD, sitting in chair at bedside nursing baby RRR No dyspnea/ retractions Abd SNTND, FFBU Ext: trace edema IMPRESSION/PLAN/PROCEDURES: [id number] Impression: Normal Progression Plan: Continue Present Management; Consult Progress Notes: 33 yo POD #1 s/ p PLTCS for failed induction, occiput posterior presentation -complicated by PPH: received cytotec 1000mcg VA, TXA 1g IV, additional 30 units pitocin, methergine 0.2mg IM -Hgb 9.1 this am, offered IV iron infusion vs oral iron and pt strongly prefers oral iron -Ambulating, voiding, tolerating regular diet -Anticipate shower later today, consider DC to home tomorrow vs Thursday -Continue support Signing Physician: Thaddeus Ding DO *Electronically Signed* 03/22/23 1219 THADDEUS DING DO PATIENT NAME: ARRON CORNELIUS PROGRESS NOTE DATE OF : 90 PHYSICIAN: THADDEUS DING DO RPT #: [id number] REPORT IS CONFIDENTIAL AND NOT TO BE RELEASED WITHOUT AUTHORIZATION
--- NOTE | 2023-03-23 09:58 | PR ---
[facility] [address] [place], [place] [address] Signed PP Progress Notes Datetime Report Generated by CPN: 03/23/2023 09:58 SUBJECTIVE: [id number] Pain: Within Normal Limits Nausea/Vomiting: Denies Flatus: Yes Vital Signs: [id number] Vital Signs: Reviewed; Within Normal Limits EXAM: Ongoing Cardiovascular: Normal Respiratory: Normal Abdomen/Uterus: Normal Lochia: Normal Breasts: Normal Extremities: Normal Incision: Normal Progress: Normal Exam Comments: [employer] declined, no sensitive areas exposed. NAD, sitting in chair at bedside. RRR No dyspnea/ retractions Abd SNTND, FFBU Incision c/d/i, alexandria in place, no erythema/ exudate. Ext: trace edema, neg Josafat's BL IMPRESSION/PLAN/PROCEDURES: [id number] Impression: Normal Progression Plan: Continue Present Management; Discharge Procedures: None Progress Notes: 33 yo POD#2 s/p PLTCS for failed MIOL for GDMA1 -progressing well postop. Ambulating, voiding, tolerating regular diet. +Flatus. Lochia light. Denies dizziness/ lightheadedness -Requesting DC today. Reports well, undecided re: contraception -Anticipate outpatient staple removal on DC precautions reviewed Signing Physician: Thaddeus Ding DO *Electronically Signed* 03/23/23 0958 THADDEUS DING DO PATIENT NAME: ARRON CORNELIUS PROGRESS NOTE DATE OF : 90 PHYSICIAN: THADDEUS DING DO RPT #: [id number] REPORT IS CONFIDENTIAL AND NOT TO BE RELEASED WITHOUT AUTHORIZATION [address], [place] [address] Signed Copies: ~ *Electronically Signed* 03/23/23 0958 THADDEUS DING DO PATIENT NAME: ARRON CORNELIUS PROGRESS NOTE DATE OF : 90 PHYSICIAN: THADDEUS DING DO RPT #: [id number] REPORT IS CONFIDENTIAL AND NOT TO BE RELEASED WITHOUT AUTHORIZATION
== END 2023-03-23 10:45 | disposition home or self-care (01) | DRG 787 ==
LOC: FBC 00:06
PROVIDERS: ADMIT Obstetrics & Gynecology; ATTEND Obstetrics & Gynecology
PROC: 0U7C7ZZ Dilation of Cervix, Via Natural or Artificial Opening (ICD-10-PCS; 2023-03-21)
PROC: 10D00Z1 Extraction of Products of Conception, Low, Open Approach (ICD-10-PCS; principal; 2023-03-21 08:00)
DX: O48.0 Post-term pregnancy (principal); O72.1 Other immediate postpartum hemorrhage; O24.420 Gestational diabetes mellitus in childbirth, diet controlled; Z3A.40 40 weeks gestation of pregnancy; Z37.0 Single live birth; O61.9 Failed induction of labor, unspecified; O99.214 Obesity complicating childbirth; O76 Abnormality in fetal heart rate and rhythm complicating labor and delivery; E66.01 Morbid (severe) obesity due to excess calories; O99.344 Other mental disorders complicating childbirth; F41.9 Anxiety disorder, unspecified; F32.A Depression, unspecified; Z79.899 Other long term (current) drug therapy; Z98.890 Other specified postprocedural states; Z90.49 Acquired absence of other specified parts of digestive tract; Z79.82 Long term (current) use of aspirin
CPT/HCPCS: 01961; 36415; 76942; 85027; 85384; 85610; 85730; 86850; 86900; 86901; A9270; J0690; J1100; J1650; J1885; J2371; J2590; J2795; J7121

== ENCOUNTER 2025-07-03 09:15 | Inpatient (IN) | payer OTHER ==
[~2025-07-03] VITALS: Ht 165.1 cm; Wt 145.2 kg
[2025-07-10] MEDS ORDERED: LACTATED RINGER'S 1,000 ML IV PRN (06:45)
[2025-07-10] MEDS ORDERED: CEFAZOLIN SODIUM 3 GM in SODIUM CHLORIDE 0.9% 100 ML IV SCH (07:00)
[2025-07-10] MEDS ORDERED: MORPHINE SULFATE 1 MG/ML VIAL ONE (07:15)
[2025-07-10] MEDS ORDERED: fentaNYL citrate 100 MCG/2 ML VIAL ONE ×2 (07:15→10:08)
[2025-07-10] MEDS ORDERED: OXYTOCIN 10 UNITS/ML VIAL ONE (07:16)
[2025-07-10] MEDS ORDERED: LIDOCAINE HCL 2% 5 ML SDV ONE (07:16)
[2025-07-10] MEDS ORDERED: BUPIVACAINE 0.75% IN DEXTROSE 2 ML AMP ONE (07:16)
[2025-07-10 07:22] VITALS: BP 111/63
[2025-07-10 07:25] LABS: AMPHETAMINES, URINE NEGATIVE (NEGATIVE); BARBITURATES, URINE NEGATIVE (NEGATIVE); BENZODIAZEPINE, URINE NEGATIVE (NEGATIVE); CANNABINOID, URINE NEGATIVE (NEGATIVE); COCAINE, URINE NEGATIVE (NEGATIVE); ECSTASY, URINE NEGATIVE (NEGATIVE); FENTANYL, URINE NEGATIVE (NEGATIVE); METHADONE, URINE NEGATIVE (NEGATIVE); OPIATES, URINE NEGATIVE (NEGATIVE); OXYCODONE, URINE NEGATIVE (NEGATIVE); PHENCYCLIDINE, URINE NEGATIVE (NEGATIVE)
[2025-07-10] MEDS ORDERED: PHENYLEPHRINE HCL IN 0.9% NACL 1 MG/10 ML SYR ONE ×2 (07:31→08:41)
[2025-07-10 07:34] LABS: MCH 29.4 PG (25.6-32.2); MCHC 34.1 g/dL (32.2-35.5); MCV 86.4 fL (79.4-94.8); RBC 4.25 M/uL (3.93-5.22)
[2025-07-10 07:56] LABS: ABO O; ANTIBODY SCREEN NEGATIVE; RH POSITIVE
[2025-07-10 07:57] LABS: IS CROSSMATCH COMPATIBLE
[2025-07-10] MEDS ORDERED: fentaNYL citrate 50 MCG/ML SDV IV PRN (08:45)
[2025-07-10] MEDS ORDERED: HYDROmorphone HCL 1 MG/ML SYR IV PRN (08:45)
[2025-07-10] MEDS ORDERED: NALOXONE HCL 0.4 MG SYR IV PRN ×2 (08:45)
[2025-07-10] MEDS ORDERED: IBLOOD GLUCOSE TEST STRIP 1 EA TEST VI PRN (08:45)
[2025-07-10] MEDS ORDERED: KETOROLAC TROMETHAMINE 30 MG/ML VIAL IV PRN ×2 (08:45)
[2025-07-10] MEDS ORDERED: OXYTOCIN/0.9 % SODIUM CHLORIDE 500 ML IV SCH (09:45)
[2025-07-10] MEDS ORDERED: METOCLOPRAMIDE HCL 10 MG/2 ML SDV IV PRN (09:45)
[2025-07-10] MEDS ORDERED: PROCHLORPERAZINE EDISYLATE 10 MG/2 ML VIAL IV PRN (09:45)
[2025-07-10] MEDS ORDERED: OXYCODONE HCL 5 MG TAB PO PRN (09:45)
[2025-07-10] MEDS ORDERED: PROMETHAZINE HCL 25 MG TAB PO PRN (09:45)
[2025-07-10] MEDS ORDERED: PROMETHAZINE HCL 25 MG SUPP PR PRN (09:45)
[2025-07-10] MEDS ORDERED: HYDROCODONE/ACETA 5/325 TAB PO PRN (09:45)
[2025-07-10] MEDS ORDERED: OXYCODONE/APAP 5/325 TAB PO PRN (09:45)
[2025-07-10] MEDS ORDERED: LACTATED RINGER'S 1,000 ML IV SCH (09:50)
[2025-07-10] MEDS ORDERED: SIMETHICONE 80 MG CHEW PO SCH (11:00)
[2025-07-10] MEDS ORDERED: KETOROLAC TROMETHAMINE 30 MG/ML VIAL IV SCH (14:00)
[2025-07-10 15:18] VITALS: BP 125/68
--- NOTE | 2025-07-10 15:43 | NUR ---
07/10/25 1543 Sheets,Mya 0900 PT ARRIVED TO ROOM 104, PT AWAKE AND DENIES CONERNS. HOB INCREASED SLIGHTLY AND DENIES CONCERNS. EDUCATION GIVEN ON SPINAL AND SITTING UP IN BED. SPINAL LEVEL T6 0955 PT SIPPING WATER. PT REPORTS INCREASED PAIN WITH FUNDAL CHECK AND PT REPORTS "PRESSURE" 1003 PT REPORTS NAUSEA, EMESIS BAG GIVEN AND NAUSEA MEDICATION GIVEN. 1014 PT REPORTS NAUSEA IS BETTER AND REPORTS 8/10 PAIN. PAIN MEDICATION GIVEN. 1017 PT SIPPING WATER AND CRACKER GIVEN. ORAL PAIN MEDICATION GIVEN. PT REPORTS PAIN IS BETTER 3/10. 1025 REPROT TO [facility]BC RN AND BED PLUGGED IN. ALL QUESTIONS ANSWERED.
[2025-07-10] MEDS ORDERED: SENNOSIDES/DOCUSATE 1 EA TAB PO SCH (21:00)
[2025-07-10] MEDS ORDERED: ENOXAPARIN SODIUM 40 MG/0.4 ML SYR SUB-Q SCH (21:00)
[2025-07-11] MEDS ORDERED: IBUPROFEN 600 MG TAB PO SCH (02:00)
[2025-07-11] MEDS ORDERED: LACTATED RINGER'S 1,000 ML IV SCH (05:00)
[2025-07-11 06:05] LABS: MCH 30.0 PG (25.6-32.2); MCHC 34.4 g/dL (32.2-35.5); MCV 87.0 fL (79.4-94.8); RBC 3.47 M/uL (3.93-5.22)
== END 2025-07-12 11:10 | disposition home or self-care (01) | DRG 788 ==
LOC: FBC 07-10 06:20
PROVIDERS: ADMIT Obstetrics & Gynecology; ATTEND Obstetrics & Gynecology
PROC: 3E03329 Introduction of Other Anti-infective into Peripheral Vein, Percutaneous Approach (ICD-10-PCS; 2025-07-10)
PROC: 10D00Z1 Extraction of Products of Conception, Low, Open Approach (ICD-10-PCS; principal; 2025-07-10 07:30)
DX: O34.211 Maternal care for low transverse scar from previous cesarean delivery (principal); O24.425 Gestational diabetes mellitus in childbirth, controlled by oral hypoglycemic drugs; O99.344 Other mental disorders complicating childbirth; F41.9 Anxiety disorder, unspecified; F32.A Depression, unspecified; O99.214 Obesity complicating childbirth; E66.01 Morbid (severe) obesity due to excess calories; Z37.0 Single live birth; Z3A.38 38 weeks gestation of pregnancy
CPT/HCPCS: 01961; 36415; 80307; 85027; 86850; 86900; 86901; 86922; A9270; J0165; J0688; J1650; J1885; J2003; J2274; J2405; J2590; J2765; J3010; J7121